=== PATIENT | female | born 1985 | race Caucasian/White ===

== ENCOUNTER 2016-09-08 17:05 | Inpatient (IN) | payer MEDICAID ==
[~2016-09-08] VITALS: Ht 147.3 cm; Wt 75.0 kg
[2016-09-08 17:20] VITALS: Ht 147.3 cm; Wt 75.0 kg
[2016-09-08 17:21] VITALS: BP 109/70; PULSE 107; RESP 18
[2016-09-08] MEDS ORDERED: PREN1TAB79 PO (17:22)
--- NOTE | 2016-09-08 17:53 | TRIAGE ---
OB Triage Datetime Report Generated by CPN: 09/08/2016 17:53 Datetime: 09/08/2016 17:48 Stage of : OB Triage Maternal Assessment Level of Consciousness: Fully Conscious DTR's/Clonus: DTRs 1+ Headache: Denies Blurred Vision: No Nausea/Vomiting: Present RUQ Epigastric Pain: Denies Facial Edema: None Labor Evaluation Frequency: IRRITABILITY Monitor Mode: External Duration (sec)2399: 30-40 Quality: Mild Pattern: Normal: <= 5 Contractions in 10 Minutes Resting Tone [place]: Relaxed Heart Rate FHR Baseline Rate: 140 Monitor Mode: External US Variability: Moderate 6-25 bpm Accelerations: 10X10 Decelerations: None Category: Category I Pain Assessment Pain Scale: 0 Pain Presence: None/Denies Pain Type: N/A Pain Goal: 3 Datetime: 09/08/2016 17:20 Assessment Type: Triage Maternal Assessment Level of Consciousness: Fully Conscious DTR's/Clonus: DTRs 2+; No Clonus Headache: Denies Blurred Vision: No Respiratory Effort: Unlabored; Regular Rhythm; Equal Expansion Breath Sounds, Left: Clear and Equal Breath Sounds, Right: Clear and Equal Nausea/Vomiting: Denies RUQ Epigastric Pain: Denies Lower Extremities Edema: None Degree: None Upper Extremities Edema: None Degree: None Facial Edema: None Fall Risk Assessment History of Falling: (0) No Secondary Diagnosis: (0) No Ambulatory Aid: (0) Bedrest/Nurse Assist IV Therapy: (0) No Gait: (0) Normal/Bedrest/Immobile Mental Status: (0) Oriented to Own Ability Fall Score: 0 Fall Risk Score Definition: No Risk: No action required Datetime: 09/08/2016 17:00 Time of Arrival: 09/08/2016 17:00 Arrived By: Ambulance Arrived From: Other Hospital Chief Complaint: PT CAME IN FROM [facility] VIA AMBULANCE C/O N/V/D SINCE 2 DAYS AGO. Movement: Present Contractions: Denies/Absent Rupture of Membranes: Denies Vaginal Discharge: Denies Recent Sexual Intercouse: Denies Abdominal Trauma: Not Applicable Additional Patient Complaints: NONE Time Provider Notified: 09/08/2016 17:00 Provider Notified: BRITTON Initial Plan: IV HYDRATION
[2016-09-08] MEDS: LACTATED RINGER'S 1,000 ML IV SCH (18:08)
[2016-09-08] MEDS ORDERED: ONDANSETRON 4 MG INJ IV PRN (18:30)
[2016-09-08] MEDS: DEXTROSE 5%-LR 1,000 ML IV SCH (18:40)
[2016-09-08] MEDS: FERROUS SULFATE (EC) 325 MG TAB PO SCH (21:00)
[2016-09-08] MEDS: DIPHENOXYLATE/ATROPINE TAB PO PRN (23:35)
[2016-09-09] MEDS: LACTATED RINGER'S 1,000 ML IV SCH ×2 (02:08→10:08)
[2016-09-09] MEDS: DIPHENOXYLATE/ATROPINE TAB PO PRN ×4 (03:42→23:24)
[2016-09-09] MEDS: DEXTROSE 5%-LR 1,000 ML IV SCH ×3 (03:43→23:19)
[2016-09-09 07:15] LABS: BASOPHILS % 0.1 % (0.0-2.0); EOSINOPHILS % 0.5 % (0.0-7.0); HEMATOCRIT 35.7 % (37.0-47.0); HEMOGLOBIN 12.4 g/dl (12.0-16.0); LYMPHOCYTES # 0.6 10^3/ul (0.8-2.9); LYMPHOCYTES % 13.4 % (15.0-51.0); MEAN CORPUSCULAR HEMOGLOBIN 30.4 pg (29.0-33.0); MEAN CORPUSCULAR HGB CONC 34.9 g/dl (32.0-37.0); MEAN PLATELET VOLUME 10.1 fl (7.4-10.4); MONOCYTE # 0.5 10^3/ul (0.3-0.9); MONOCYTES % 12.2 % (0.0-11.0); NEUTROPHIL # 3.3 10^3/ul (1.6-7.5); NEUTROPHILS % 73.8 % (39.0-77.0); PLATELET COUNT 156 10^3/UL (140-440); RED CELL DISTRIBUTION WIDTH 13.9 % (11.5-14.5); UNCORRECTED WBC 4.5 10^3/ul (4.8-10.8); WHITE BLOOD COUNT 4.5 10^3/ul (4.8-10.8)
[2016-09-09 07:29] LABS: ALBUMIN 3.2 g/dl (3.3-4.9)
[2016-09-09 07:30] LABS: POTASSIUM 3.1 mmol/L (3.5-5.1)
[2016-09-09 07:32] LABS: ALBUMIN/GLOBULIN RATIO 0.91; BILIRUBIN,INDIRECT 0.3 mg/dl (0-1.1); BILIRUBIN,TOTAL 0.3 mg/dl (0.2-1.3); CREATININE 1.16 mg/dl (0.44-1.00); TOTAL PROTEIN 6.7 g/dl (6.1-8.1)
[2016-09-09 07:33] LABS: CALCIUM 8.1 mg/dl (8.4-10.2)
[2016-09-09 07:36] LABS: CONDITION 1
[2016-09-09] MEDS: FERROUS SULFATE (EC) 325 MG TAB PO SCH ×2 (08:58→21:11)
[2016-09-09] MEDS: MULTIVIT/MIN/FOLATE/IRON/PREN TAB PO SCH (08:58)
[2016-09-09] MEDS: DOCUSATE SODIUM 100 MG CAP PO SCH (09:00)
[2016-09-09] MEDS ORDERED: MULTIVIT/MIN/FOLATE/IRON/PREN TAB PO SCH (09:00)
[2016-09-09 09:16] VITALS: BP 109/61; PULSE 102; RESP 18
--- NOTE | 2016-09-09 17:02 | HP ---
Date/Time of Note Date/Time of Note DATE: 09/09/16 TIME: 16:58 OB - History Hx of Present Free Text/Dictation sent in from [facility] for N/V and diarrhea x 2-3 days denies fever , chills Chief Complaint: nausea, vomitting ans duarrhea Estimated Due Date: Nov 30, 2016 : 3 Para: 2 Care: Good Care Ultrasounds: Normal mid trimester US Obstetrical Complications: None Medical Complications: None Past Family/Social History * Past Medical, Surgical, Family and Obstetric Histories reviewed from chart. Blood Type: O+ Rubella: immune RPR/VDRL: Negative GBS Status: Unknown HBsAG: Negative OB Admission Exam Vital Signs Vital Signs Vital Signs Date Time Temp Pulse Resp B/P Pulse Ox O2 Delivery O2 Flow Rate FiO2 09/09/16 09:16 98.3 102 18 109/61 Room Air Physical Exam HEENT: WNL Heart: Rhythm Normal Lungs: Clear, Equal Abdomen: WNL Extremities: Normal Reflexes: Normal Cervical Dilatation: None Effacement: 0% Station: -3 Heart Rate: 150's Accelerations: Accelerations Present Decelerations: No Decelerations Contractions on Admission: None Last 72 hours Lab Results CBC & BMP 09/09/16 05:37 Liver Function Test 09/09/16 05:37 Alanine Aminotransferase (ALT/SGPT) 52 Albumin 3.2 L Alkaline Phosphatase 102 Aspartate Amino Transf (AST/SGOT) 37 Direct Bilirubin 0.00 Total Protein 6.7 OB Assessment/Plan Other Assessment: ? gallstones Viral and or bacterial causes of diarrhea Other plan: Stools for Cx and ova and parasite IV hydration advance diet slowly DEANN SALTER MD Sep 09, 2016 17:02
--- NOTE | 2016-09-09 17:06 | PN ---
Date/Time of Note Date/Time of Note DATE: 09/09/16 TIME: 17:02 Assessment/Plan VTE Prophylaxis VTE Prophylaxis Intervention: ambulation Lines/Catheters IV Catheter Type (from Nrs): Peripheral IV Assessment/Plan Assessment/Plan 28 + weeks gestation dehydration possible bacterial and or viral causes of diarrhea will perform tests and advance diet Subjective 24 Hr Interval Summary Free Text/Dictation NO C/.O N/V had 3 BMs since AM Exam/Review of Systems Vital Signs Vitals Vital Signs Date Time Temp Pulse Resp B/P Pulse Ox O2 Delivery O2 Flow Rate FiO2 09/09/16 09:16 98.3 102 18 109/61 Room Air Intake and Output 09/08/16 09/08/16 09/09/16 15:00 23:00 07:00 Intake Total 120 ml 360 ml Output Total 500 ml Balance 120 ml -140 ml Exam Constitutional: alert, oriented, well developed Psych: nl mood/affect, no complaints Head: atraumatic, normocephalic Eyes: EOMI, PERRL, nl conjunctiva, nl lids, nl sclera ENMT: nl external ears & nose, nl lips & teeth, nl nasal mucosa & septum Neck: non-tender, supple Respiratory: clear to auscultation, normal air movement Cardiovascular: nl pulses, regular rate and rhythm Gastrointestinal: nl liver, spleen, non-tender, soft Genitourinary - Female: uterus (Gravid) Musculoskeletal: nl extremities to inspection, nl gait and stance Extremities: normal pulses Neurological: CAMPAIGN ASSISTANT II-XII intact, nl mental status, nl speech, nl strength Skin: nl turgor, No rash or lesions Lymph: nl lymph nodes Results Result Diagram: 09/09/16 0537 09/09/16 0537 Results 24 hrs Laboratory Tests Test 09/09/16 05:37 Alanine Aminotransferase (ALT/SGPT) 52 Albumin 3.2 L Albumin/Globulin Ratio 0.91 Alkaline Phosphatase 102 Anion Gap 17 H Aspartate Amino Transf (AST/SGOT) 37 Basophils # 0.0 Basophils % 0.1 Blood Urea Nitrogen 18 Calcium Level 8.1 L Carbon Dioxide Level 20 L Chloride Level 101 Creatinine 1.16 H Direct Bilirubin 0.00 Eosinophils # 0.0 Eosinophils % 0.5 Globulin 3.50 H Glucose Level 108 Hematocrit 35.7 L Hemoglobin 12.4 Indirect Bilirubin 0.3 Lymphocytes # 0.6 L Lymphocytes % 13.4 L Mean Corpuscular Hemoglobin 30.4 Mean Corpuscular Hemoglobin Concent 34.9 Mean Corpuscular Volume 87.0 Mean Platelet Volume 10.1 Monocytes # 0.5 Monocytes % 12.2 H Neutrophils # 3.3 Neutrophils % 73.8 Nucleated Red Blood Cells # 0.0 Nucleated Red Blood Cells % 0.0 Platelet Count 156 # Potassium Level 3.1 L Red Blood Count 4.10 L Red Cell Distribution Width 13.9 Sodium Level 135 Total Bilirubin 0.3 Total Protein 6.7 White Blood Count 4.5 #L Medications Medications Current Medications Prenat Multivit/ [place]/Iron/Folic Ac ( S) 1 tab DAILY PO Last administered on 09/09/16 08:58; Admin Dose 1 TAB; Start 09/09/16 at 09:00 Ferrous Sulfate (Ferrous Sulfate (Ec)) 325 mg BID PO Last administered on 08:58; Admin Dose 325 MG; Start 09/08/16 at 21:00 Docusate Sodium (Colace) 100 mg DAILY PO ; Start 09/09/16 at 09:00 Ondansetron HCl 4 mg 4 mg Q6H PRN IV NAUSEA AND/OR VOMITING; Start 09/08/16 at 18:30 Dextrose/Lactated Ringer's (D5-Lr) 1,000 ml @ 100 mls/hr Q10H IV Last administered on 09/09/16 13:34; Admin Dose 100 MLS/HR; Start 09/08/16 at 18:30 Diphenoxylate HCl/ Atropine (Lomotil) 2 tab Q4H PRN PO DIARRHEA Last administered on 09/09/16 16:40; Admin Dose 2 TAB; Start 09/08/16 at 18:30 DEANN SALTER MD Sep 09, 2016 17:05
[2016-09-10] MEDS: DIPHENOXYLATE/ATROPINE TAB PO PRN (03:56)
[2016-09-10] MEDS: DOCUSATE SODIUM 100 MG CAP PO SCH (09:00)
[2016-09-10] MEDS: FERROUS SULFATE (EC) 325 MG TAB PO SCH (09:57)
[2016-09-10] MEDS: MULTIVIT/MIN/FOLATE/IRON/PREN TAB PO SCH (09:57)
--- NOTE | 2016-09-10 14:39 | DS ---
Date/Time of Note Date/Time of Note DATE: 09/10/16 TIME: 14:37 Obstetrical Discharge Record Final Diagnosis Final Diagnosis: not delivered Other Final Diagnosis S/P hydration Condition on Discharge Physical Assessment Last Vitals: see nurses notes Voiding: Yes Bowel Movement: Yes Breast: Soft, non-tender, Filling Fundus: Other (gravid) Abdomen and Incision: soft BS + Episiotomy: NA Calf Tenderness: No Patient Condition: Good (patient with decreasing episodes of diarrhea. will D/ C home on PO meds ) DEANN SALTER MD Sep 10, 2016 14:39
--- NOTE | 2016-09-10 14:41 | PD.PPDC ---
CAPTAIN/CHECK AIRMAN Discharge Instruction Provider Information Physician Information 30 y/o female admitted with diarrhea and N/V and was treated symptomatically Diagnosis Final Diagnosis: S/P IV hydration Condition Patient Condition: Good (patient with decreasing episodes of diarrhea. 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
[2016-09-10] MEDS ORDERED: DIPH1TAB25 PO (14:43)
--- NOTE | 2016-09-10 14:46 | DS ---
Date/Time of Note Date/Time of Note DATE: 09/10/16 TIME: 14:44 Discharge Summary Admission/Discharge Info Admit Date/Time Sep 08, 2016 at 17:40 Discharge Date/Time 09/10/2015 Final Diagnosis S/P IV hydration Patient Condition: Good Hx of Present Illness 30 y/o female transferred from [facility] with N/V and diarrhea had symptomatic treatment Hospital Course uncomplicated Home Meds Active Scripts Diphenoxylate HCl/Atropine (Diphenoxylate-Atrop 2.5-0.025) 1 Each Tablet, 2 TAB PO Q4H Y for DIARRHEA, #20 TAB 0 Refills Prov:DEANN SALTER MD 09/10/16 Reported Medications Vit W-Ca,Fe,FA(<1 mg) ( Vitamins) 1 Each Tablet, 1 EACH PO, TAB 09/08/16 Follow-up Plan next day in clinic Pending Labs Laboratory Tests Test 09/10/16 07:16 Potassium Level 3.1mmol/L (3.5-5.1) DEANN SALTER MD Sep 10, 2016 14:46
== END 2016-09-10 15:42 | disposition home or self-care (01) | DRG 781 ==
LOC: OBT 17:05 → L-D 17:06 → OBT 17:40 → OBG 21:58
PROVIDERS: ADMIT Obstetrics & Gynecology; ATTEND Obstetrics & Gynecology
DX: O26.893 Other specified pregnancy related conditions, third trimester (principal); A04.9 Bacterial intestinal infection, unspecified; Z3A.28 28 weeks gestation of pregnancy; E86.0 Dehydration
CPT/HCPCS: 80053; 84132; 85025; 87045; 87177; G0463; J7120; J7121

== ENCOUNTER 2016-11-27 16:55 | Inpatient (IN) | payer MEDICAID ==
[~2016-11-27] VITALS: Ht 144.8 cm; Wt 81.0 kg
[~2016-11-27 16:55] MED LIST: DIPH1TAB25 PO; PREN1TAB79 PO
[2016-11-27 17:14] VITALS: Ht 144.8 cm; Wt 81.0 kg
[2016-11-27 17:15] VITALS: BP 148/81; RESP 18
[2016-11-27] MEDS ORDERED: LACTATED RINGER'S 1,000 ML IV PRN (20:00)
[2016-11-27] MEDS ORDERED: LACTATED RINGER'S 1,000 ML IV SCH (20:03)
[2016-11-27] MEDS ORDERED: METHYLERGONOVINE 0.2 MG INJ IM PRN (20:30)
[2016-11-27] MEDS ORDERED: CARBOPROST 250 MCG INJ IM PRN (20:30)
[2016-11-27] MEDS ORDERED: AMPICILLIN 2 GM/NS (PMX) 100 ML IV ONE (20:30)
[2016-11-27] MEDS ORDERED: MISOPROSTOL 200 MCG TAB PR PRN (20:30)
[2016-11-27] MEDS ORDERED: LIDOCAINE 1% (MPF) 30 ML INJ INJ PRN (20:30)
[2016-11-27] MEDS ORDERED: OXYTOCIN 30 UNITS/LR 500 ML IV SCH ×2 (20:30)
[2016-11-27] MEDS ORDERED: BUTORPHANOL 2 MG INJ IV PRN (20:30)
[2016-11-27] MEDS ORDERED: OXYTOCIN 30 UNITS/LR 500 ML IV PRN (20:30)
[2016-11-27 20:52] LABS: ADD SCAN DIFF NO
[2016-11-27 20:53] LABS: BASOPHILS % 0.3 % (0.0-2.0); EOSINOPHILS # 0.5 10^3/ul (0.0-0.5); EOSINOPHILS % 5.4 % (0.0-7.0); HEMOGLOBIN 12.6 g/dl (12.0-16.0); LYMPHOCYTES # 1.6 10^3/ul (0.8-2.9); LYMPHOCYTES % 18.4 % (15.0-51.0); MEAN CORPUSCULAR HGB CONC 34.1 g/dl (32.0-37.0); MEAN CORPUSCULAR VOLUME 88.1 fl (82.0-101.0); MEAN PLATELET VOLUME 12.4 fl (7.4-10.4); MONOCYTE # 0.6 10^3/ul (0.3-0.9); MONOCYTES % 7.2 % (0.0-11.0); NEUTROPHIL # 5.9 10^3/ul (1.6-7.5); PLATELET COUNT 196 10^3/UL (140-415); RED CELL DISTRIBUTION WIDTH 13.6 % (11.5-14.5); WHITE BLOOD COUNT 8.7 10^3/ul (4.8-10.8)
[2016-11-27 21:13] LABS: INR 0.91; PROTIME 12.3 Sec (12.2-14.2)
[2016-11-27 21:14] LABS: PARTIAL THROMBOPLASTIN TIME 29.7 Sec (25.0-35.0)
[2016-11-27] MEDS ORDERED: MINERAL OIL LIGHT 10 ML VIAL TOP ONE (22:30)
[2016-11-28] MEDS ORDERED: AMPICILLIN 1 GM/NS (PMX) 50 ML IV SCH (00:30)
--- NOTE | 2016-11-28 01:42 | LDN ---
Date/Time of Note Date/Time of Note DATE: 11/28/16 TIME: 01:39 Delivery Summary Placenta Delivered: Spontaneously Meconium: none Episiotomy: No Anesthesia type: None Estimated blood loss: 150 Sponge & Needle done & correct: Yes All needle counts correct: Yes Any foreign bodies felt in the: No Problems: Infant Delivery Information Apgars 1 Minute: 8 5 Minute: 9 Umbilical Cord Umbilical cord with: 3 Vessels Cord presentations: nuchal cord Nuchal cord present X: 1 Cord Blood was obtained: Yes Mother & Baby Disposition Disposition Baby's weight 7 lbs. 14 oz./3570 g Mom & Baby to Maternity; Good: Yes Baby to NICU: No DANY LY Nov 28, 2016 01:42
--- NOTE | 2016-11-28 01:54 | HP ---
Date/Time of Note Date/Time of Note DATE: 11/28/16 TIME: 01:51 OB - History Hx of Present Free Text/Dictation admitted in labor at term Chief Complaint: labor pains Last Menstrual Period: Feb 09, 2016 Estimated Due Date: Nov 30, 2016 : 3 Para: 2 Care: Good Care Ultrasounds: Normal mid trimester US Obstetrical Complications: None Medical Complications: None Past Family/Social History * Past Medical, Surgical, Family and Obstetric Histories reviewed from chart. Blood Type: O+ Rubella: immune RPR/VDRL: Positive GBS Status: Negative (false positive ) HBsAG: Negative OB Admission Exam Vital Signs Vital Signs Vital Signs Date Time Temp Pulse Resp B/P Pulse Ox O2 Delivery O2 Flow Rate FiO2 11/27/16 17:15 18 148/81 Room Air Physical Exam HEENT: WNL Heart: Rhythm Normal Lungs: Clear, Equal Abdomen: WNL Extremities: Normal Reflexes: Normal Cervical Dilatation: 3cm Effacement: 50% Station: -3 Membranes: Intact Heart Rate: 130's Accelerations: Accelerations Present Decelerations: No Decelerations Varibility: Moderate Contractions on Admission: < 5 Minutes Apart Date/Time Contractions Began: Frequency of Contractions: q 4 Duration: >30 seconds Last 72 hours Lab Results CBC & BMP 11/27/16 20:10 OB Assessment/Plan Other Assessment: term gestation labor pains Other plan: proceed with labor DEANN SALTER MD Nov 28, 2016 01:54
[2016-11-28] MEDS: LACTATED RINGER'S 1,000 ML IV* SCH ×2 (03:14→11:14)
[2016-11-28 03:30] VITALS: BP 125/70; PULSE 63; RESP 18
[2016-11-28] MEDS ORDERED: OXYTOCIN 30 UNITS/LR 500 ML IV PRN (03:30)
[2016-11-28] MEDS ORDERED: ZOLPIDEM 5 MG TAB PO PRN (03:30)
[2016-11-28] MEDS ORDERED: METHYLERGONOVINE 0.2 MG INJ IM PRN (03:30)
[2016-11-28] MEDS ORDERED: LANOLIN 7 GM TUBE TOP PRN (03:30)
[2016-11-28] MEDS ORDERED: MISOPROSTOL 200 MCG TAB PR PRN (03:30)
[2016-11-28] MEDS ORDERED: CARBOPROST 250 MCG INJ IM PRN (03:30)
[2016-11-28] MEDS ORDERED: BENZOCAINE 20% 56 ML SPRAY TOP PRN (03:30)
[2016-11-28] MEDS ORDERED: ACETAMINOPHEN/CODEINE #3 TAB PO PRN ×2 (03:30)
[2016-11-28] MEDS ORDERED: DIBUCAINE 1% 30 GM OINT PR PRN (03:30)
[2016-11-28 03:45] VITALS: BP 119/69; PULSE 60; RESP 18
[2016-11-28] MEDS: IBUPROFEN 600 MG TAB PO SCH ×4 (05:56→23:54)
[2016-11-28] MEDS: WITCH HAZEL/GLYCERIN PAD PR PRN ×2 (05:57→20:47)
[2016-11-28 08:30] VITALS: BP 116/64; PULSE 62; RESP 16
[2016-11-28] MEDS: SENNA/DOCUSATE NA (8.6MG/50MG) TAB PO SCH ×2 (09:16→20:47)
[2016-11-28] MEDS: MAGNESIUM HYDROXIDE 30ML CUP PO SCH ×2 (09:16→20:47)
[2016-11-28 12:00] VITALS: BP 129/72; PULSE 70; RESP 16
[2016-11-28 16:00] VITALS: BP 125/75; PULSE 65; RESP 16
[2016-11-28 20:00] VITALS: BP 109/68; PULSE 92; RESP 20
--- NOTE | 2016-11-28 23:13 | DS ---
Date/Time of Note Date/Time of Note home on 08/31 or 09/01 DATE: 11/28/16 TIME: 23:12 Obstetrical Discharge Record Final Diagnosis Final Diagnosis: Term delivered Vaginal Delivery Obstetrical Delivery: Spontaneous Condition on Discharge Physical Assessment Last Vitals: see nurses notes Voiding: Yes Bowel Movement: Yes Breast: Soft, non-tender, Filling Fundus: Firm Abdomen and Incision: soft bs + Episiotomy: NA Calf Tenderness: No Patient Condition: Good DEANN SALTER MD Nov 28, 2016 23:13
[2016-11-28] MEDS ORDERED: IBUP-1542 PO (23:23)
--- NOTE | 2016-11-28 23:23 | PD.PPDC ---
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
[2016-11-29 04:00] VITALS: BP 111/66; PULSE 70; RESP 19
[2016-11-29] MEDS: IBUPROFEN 600 MG TAB PO SCH ×2 (05:46→11:41)
[2016-11-29 07:10] LABS: ADD SCAN DIFF NO
[2016-11-29 07:14] LABS: BASOPHILS % 0.4 % (0.0-2.0); EOSINOPHILS # 0.4 10^3/ul (0.0-0.5); EOSINOPHILS % 6.2 % (0.0-7.0); HEMATOCRIT 32.4 % (37.0-47.0); HEMOGLOBIN 10.9 g/dl (12.0-16.0); LYMPHOCYTES % 28.3 % (15.0-51.0); MEAN CORPUSCULAR HEMOGLOBIN 30.1 pg (29.0-33.0); MEAN CORPUSCULAR HGB CONC 33.6 g/dl (32.0-37.0); MEAN CORPUSCULAR VOLUME 89.5 fl (82.0-101.0); MEAN PLATELET VOLUME 12.2 fl (7.4-10.4); MONOCYTE # 0.5 10^3/ul (0.3-0.9); MONOCYTES % 7.4 % (0.0-11.0); NEUTROPHIL # 3.9 10^3/ul (1.6-7.5); PLATELET COUNT 168 10^3/UL (140-415); RED BLOOD COUNT 3.62 10^6/ul (4.20-5.40); RED CELL DISTRIBUTION WIDTH 13.9 % (11.5-14.5); WHITE BLOOD COUNT 6.9 10^3/ul (4.8-10.8)
[2016-11-29] MEDS: MAGNESIUM HYDROXIDE 30ML CUP PO SCH (09:11)
[2016-11-29] MEDS: SENNA/DOCUSATE NA (8.6MG/50MG) TAB PO SCH (09:11)
[2016-11-30] MEDS ORDERED: VARICELLA VACCINE LIVE/PF 1,350 UNIT/0.5 ML ML SC* ONE (09:00)
[2016-11-30] MEDS ORDERED: DIPHTH/TET/ACEL PERTUSS (ADULT) 0.5 ML VIAL IM* ONE (09:00)
[2016-11-30] MEDS ORDERED: MEASLES,MUMPS,RUBELLA VACCINE INJ SC* ONE (09:00)
== END 2016-11-29 14:40 | disposition home or self-care (01) | DRG 775 ==
LOC: L-D 16:55 → OBT 16:55 → L-D 17:01 → OBT 19:20 → L-D 19:20 → PP1 11-28 03:21
PROVIDERS: ADMIT Obstetrics & Gynecology; ATTEND Obstetrics & Gynecology
PROC: 10E0XZZ Delivery of Products of Conception, External Approach (ICD-10-PCS; principal; 2016-11-28)
DX: O69.81X0 Labor and delivery complicated by cord around neck, without compression, not applicable or unspecified (principal); Z37.0 Single live birth; Z3A.37 37 weeks gestation of pregnancy
CPT/HCPCS: 85025; 85610; 85730; 86592; 86900; 86901; G0463; J0290; J2590; J7120